=== PATIENT | female | born 1995 | race African-American/Black ===

== ENCOUNTER 2023-10-25 12:04 | Emergency (ER) | payer MEDICARE, OTHER ==
[~2023-10-25] VITALS: Ht 167.6 cm; Wt 72.9 kg
[2023-10-25 13:03] VITALS: BP 103/93; PULSE 72; RESP 18; TEMP 98.1; O2SAT 99
[2023-10-25 13:57] LABS: Urine Bacteria NONE SEEN /hpf (None Seen); Urine Blood Negative /uL (Negative); Urine Clarity Clear (Clear); Urine Color Yellow (Yellow); Urine Mucus MODERATE (None Seen); Urine Protein, UAD TRACE (Negative); Urine WBC 13 /hpf (0 - 5)
[2023-10-25] MEDS ORDERED: PHEN-1045 PO (14:10)
[2023-10-25] MEDS ORDERED: CEPH500C PO (14:10)
[2023-10-25] MEDS: cefTRIAXone SOD 1,000 MG VL IM ONE (14:43)
[2023-10-25] MEDS: PHENAZOPYRIDINE HCL 100 MG TAB PO ONE (14:43)
[2023-10-25] MEDS ORDERED: DOXY1CAP57 PO (15:23)
[2023-10-25] MEDS ORDERED: MET500T PO (15:23)
[2023-10-25] MEDS: AZITHROMYCIN 250 MG TAB PO ONE (15:30)
[2023-10-25] MEDS: FLUCONAZOLE 100 MG TAB PO ONE (15:30)
[2023-10-25 15:45] LABS: Vaginal Trichomonas Not Present
[2023-10-25 15:48] LABS: Vaginal Bacteria Few; Vaginal Clue Cells None Seen; Vaginal Epithelial Cells Few
[2023-10-27 23:07] LABS: Chlamydia Trachomatis, NAA Positive (Negative); Neisseria gonorrhoeae, NAA Negative (Negative)
== END 2023-10-25 16:12 | disposition home or self-care (01) ==
LOC: ER 12:04
DX: N39.0 Urinary tract infection, site not specified (principal); N76.0 Acute vaginitis; Z32.02 Encounter for pregnancy test, result negative
CPT/HCPCS: 81001; 81025; 87210; 87491; 87591; 96372; 99284; J0696

== ENCOUNTER 2024-04-21 09:45 | Emergency (ER) | payer MEDICARE, OTHER ==
[~2024-04-21 09:45] MED LIST: DOXY1CAP57 PO; MET500T PO; PHEN-1045 PO
[2024-04-21 10:36] VITALS: PULSE 87; RESP 19; O2SAT 100
[2024-04-21 10:38] VITALS: TEMP 99.3
[2024-04-21] MEDS: ONDANSETRON HCL 4 MG/2 ML VIAL IV ONE (10:55)
[2024-04-21] MEDS: PANTOPRAZOLE 40 MG/10 ML VIAL INJ IV ONE (10:55)
[2024-04-21] MEDS: SODIUM CHLORIDE 0.9% 1,000 ML IV ONE (10:55)
[2024-04-21 11:51] LABS: Alanine Aminotransferase 10 U/L (7-40); Albumin 5.1 g/dL (3.2-4.8); Alkaline Phosphatase 47 U/L (46-116); Anion Gap 9 (5-15); Aspartate Aminotransferase 13 U/L (13-40); BUN/Creatinine Ratio 12.1 (10.0-20.0); Bilirubin, Total 1.2 mg/dL (0.2-1.0); Blood Urea Nitrogen 12 mg/dL (9-23); Calcium 10.3 mg/dL (8.7-10.4); Carbon Dioxide 22 mmol/L (20-30); Chloride 106 mmol/L (98-107); Glucose 98 mg/dL (74-106); Potassium 3.6 mmol/L (3.5-5.1); Sodium 137 mmol/L (136-145)
[2024-04-21 11:54] LABS: Basophils # (auto) 0 10 ^3/uL (0-0.2); Basophils % (auto) 0.3 % (0.0-2.0); Eosinophils # (auto) 0 10 ^3/uL (0-0.8); Eosinophils % (auto) 0.1 % (0.0-7.0); Hematocrit 47.8 % (36.0-46.0); Hemoglobin 16.4 g/dL (12.2-16.2); Lymphocytes # (auto) 0.3 10 ^3/uL (0.4-5.4); Lymphocytes % (auto) 5.3 % (10.0-50.0); Mean Corpuscular Hemoglobin 30.7 pg (28.0-32.0); Mean Corpuscular Hgb Conc. 34.3 g/dL (32.0-36.0); Mean Corpuscular Volume 89.7 fL (80.0-100.0); Monocytes # (auto) 0.3 10 ^3/uL (0-1.3); Monocytes % (auto) 4.6 % (0.0-12.0); Neutrophils # (auto) 5.6 10 ^3/uL (1.6-8.6); Neutrophils % (auto) 89.7 % (37.0-80.0); Nucleated Red Blood Cells % 0.1 %; Platelet Count (auto) 205 10^3/uL (140-450); Red Blood Cells 5.33 10^6/uL (4.0-5.20); Red Cell Distribution Width 13.9 % (11.8-14.3); White Blood Cell 6.3 10^3/uL (4.4-10.8)
[2024-04-21 12:54] VITALS: O2SAT 100
[2024-04-21] MEDS: MORPHINE SULFATE INJ 2 MG/ml SYRG IV ONE (13:01)
[2024-04-21 13:40] VITALS: BP 114/84; PULSE 81; RESP 16
[2024-04-21] MEDS ORDERED: MORPHINE SULFATE 4 MG/ML SYR/VIAL IV ONE (14:15)
[2024-04-21] MEDS ORDERED: METOCLOPRAMIDE HCL 5MG/ml INJ 2ml VIAL IV ONE (14:15)
[2024-04-21] MEDS ORDERED: IOHEXOL 300 MG/ML 100ML BOTTLE IJ ONE (14:21)
== END 2024-04-21 14:32 | disposition left against medical advice (07) ==
LOC: ER 09:45
DX: R10.84 Generalized abdominal pain (principal); R10.2 Pelvic and perineal pain; R11.2 Nausea with vomiting, unspecified; R51.9 Headache, unspecified; Z79.899 Other long term (current) drug therapy
CPT/HCPCS: 36415; 71045; 74176; 80053; 83605; 84484; 84702; 85025; 96361; 96374; 96375; 99285; J2270; J2405; J2470; J7030